=== PATIENT | male | born 1995 | race Caucasian/White ===

== ENCOUNTER 2017-11-20 05:01 | Emergency (ER) | payer OTHER ==
[2017-11-20] MEDS ORDERED: LIDOCAINE 1%/EPINEPHRINE INJ 20 ML VIAL INJ ONE (05:13)
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
[2017-11-20 06:19] VITALS: BP 135/74
== END 2017-11-20 06:31 | disposition home or self-care (01) ==
LOC: ER 05:01
PROC: 0HQ0XZZ Repair Scalp Skin, External Approach (ICD-10-PCS; principal; 2017-11-20)
PROC: 0HQ1XZZ Repair Face Skin, External Approach (ICD-10-PCS; 2017-11-20)
DX: S01.01XA Laceration without foreign body of scalp, initial encounter (principal); S01.111A Laceration without foreign body of right eyelid and periocular area, initial encounter; F10.120 Alcohol abuse with intoxication, uncomplicated; X58.XXXA Exposure to other specified factors, initial encounter
CPT/HCPCS: 99284; 70450; 72125; 12001; 12011; L0172; J3490